=== PATIENT | female | born 1975 | race Caucasian/White ===

== ENCOUNTER 2018-05-22 01:25 | Emergency (ER) | payer SELFPAY ==
[~2018-05-22] VITALS: Wt 98.9 kg
[2018-05-22] MEDS ORDERED: BENZ-6 PO (06:23)
[2018-05-22] MEDS ORDERED: PROM6.2515 PO (06:23)
[2018-05-22] MEDS ORDERED: AZIT250T PO (06:23)
[2018-05-22] MEDS ORDERED: POLY10DR19 BOTH EYES (06:23)
[2018-05-22 06:43] VITALS: BP 155/89; PULSE 92; RESP 18
--- NOTE | 2018-05-22 07:43 | ERD ---
ER Documentation Chief Complaint Chief Complaint COUGH, RUNNY NOSE, ST X'S 1 MONTH HPI 42-year-old female presenting with nasal congestion cough, sore throat and runny nose for the last month. She also has some irritation in her eyes with discharge. She states that she lost her voice a week ago. She had no fevers. Has a productive cough. Has not taken medications. Medical history is hypothyroidism hypertension. Denies allergies to medications. Surgical history denies. Social history denies ROS All systems reviewed and are negative except as per history of present illness. Medications Home Meds Active Scripts Polymyxin B Sulfate-TMP* (Polymyxin B-TMP Eye Drops*) 10 Ml Drops, 1 DROP BOTH EYES QID for 7 Days, EA Prov:JENA HERNANDEZ PA-C 05/22/18 Promethazine Hcl* (Promethazine Hcl* Syrup) 6.25 Mg/5 Ml Syrup, 6.25 MG PO Q6H PRN for COUGH, #100 ML Prov:JENA HERNANDEZ PA-C 05/22/18 Benzonatate* (Tessalon Perle*) 100 Mg Capsule, 100 MG PO Q8H PRN for COUGH, #30 CAP Prov:JENA HERNANDEZ PA-C 05/22/18 Azithromycin* (Zithromax*) 250 Mg Tablet, 250 MG PO .ZPACK DIRECTED, #6 TAB TAKE 500 MG (2 TABS) THE FIRST DAY THEN 250 MG (1 TAB) DAYS 2-5 Prov:JENA HERNANDEZ PA-C 05/22/18 Polymyxin B Sulfate-TMP* (Polymyxin B-TMP Eye Drops*) 10 Ml Drops, 1 DROP BOTH EYES QID for 7 Days, EA Prov:JENA HERNANDEZ PA-C 05/22/18 Allergies Allergies: Coded Allergies: No Known Allergy (Unverified , 05/22/18) PMhx/Soc History of Surgery: No Anesthesia Reaction: No Hx Neurological Disorder: No Hx Respiratory Disorders: No Hx Cardiac Disorders: Yes (HTN) Hx Psychiatric Problems: No Hx Miscellaneous Medical Probl: Yes (thyroid problems) Hx Alcohol Use: No Hx Substance Use: No Hx Tobacco Use: No Smoking Status: Never smoker FmHx Family History: No diabetes, No coronary disease, No other Physical Exam Vitals Vital Signs Date Temp Pulse Resp B/P (MAP) Pulse Ox O2 O2 Flow FiO2 Time Delivery Rate 05/22/18 98.3 92 18 155/89 95 Room Air 06:43 (111) 05/22/18 97.7 99 18 179/95 95 01:33 (123) Physical Exam GENERAL: The patient is well-appearing, well-nourished, in no acute distress HEENT: Atraumatic. Conjunctivae are pink. Pupils equal, round, and reactive to light. There is no scleral icterus. Tympanic membranes clear bilaterally. Oropharynx clear. Dried purulence noted around bilateral eyelids. NECK: C-spine is soft and supple. There is no meningismus. There is no cervical lymphadenopathy. CHEST: Clear to auscultation bilaterally. There are no rales, wheezes or rhonchi. HEART: Regular rate and rhythm. No murmurs, clicks, rubs or gallops. Procedures/MDM DM: 42-year-old female presenting with runny nose and cough. Patient will be discharged with supportive medications. I have low suspicion for respiratory distress or hypoxia. Patient will be treated with antibiotics given there is some coarse breath sounds heard on auscultation. Patient is told if symptoms change or worsen to return immediately to the ER. All questions answered at discharge Departure Diagnosis: Primary Impression: Bacterial conjunctivitis Additional Impression: Common cold Condition: Stable Patient Instructions: Adult Self-Care for Colds Referrals: [facility] YOU HAVE RECEIVED A MEDICAL SCREENING EXAM AND THE RESULTS INDICATE THAT YOU DO NOT HAVE A CONDITION THAT REQUIRES URGENT TREATMENT IN THE EMERGENCY DEPARTMENT. FURTHER EVALUATION AND TREATMENT OF YOUR CONDITION CAN WAIT UNTIL YOU ARE SEEN IN YOUR DOCTORS OFFICE WITHIN THE NEXT 1-2 DAYS. IT IS YOUR RESPONSIBILITY TO MAKE AN APPOINTMENT FOR FOLOW-UP CARE. IF YOU HAVE A PRIMARY DOCTOR --you should call your primary doctor and schedule an appointment IF YOU DO NOT HAVE A PRIMARY DOCTOR YOU CAN CALL OUR PHYSICIAN REFERRAL HOTLINE AT IF YOU CAN NOT AFFORD TO SEE A PHYSICIAN YOU CAN CHOSE FROM THE FOLLOWING [facility] [address] [facility] [address] [facility] [facility] [address] [facility] [address] [facility]. [facility] [address] [facility]. [facility] [address] Additional Instructions: FOLLOW UP WITH YOUR PRIMARY CARE PHYSICIAN TOMORROW.Return to this facility if you are not improving as expected. JENA HERNANDEZ PA-C May 22, 2018 07:43
== END 2018-05-22 06:44 | disposition home or self-care (01) ==
LOC: FTE 01:25
DX: H10.023 Other mucopurulent conjunctivitis, bilateral (principal); J00 Acute nasopharyngitis [common cold]; I10 Essential (primary) hypertension; E03.9 Hypothyroidism, unspecified
CPT/HCPCS: 99283